=== PATIENT | female | born 1950 | race Hispanic/Latino ===

== ENCOUNTER → 2025-01-20 | Outpatient (REF) | payer MEDICARE | LOC: NM 08:15 | PROVIDERS: ATTEND Pain Medicine Interventional Pain Medicine | DX: E11.9 Type 2 diabetes mellitus without complications (principal); I10 Essential (primary) hypertension; K59.04 Chronic idiopathic constipation; K21.00 Gastro-esophageal reflux disease with esophagitis, without bleeding; K44.9 Diaphragmatic hernia without obstruction or gangrene; K74.60 Unspecified cirrhosis of liver; K64.8 Other hemorrhoids; R14.0 Abdominal distension (gaseous); D64.9 Anemia, unspecified; K86.81 Exocrine pancreatic insufficiency; R10.12 Left upper quadrant pain; Z68.30 Body mass index [BMI] 30.0-30.9, adult; Z71.3 Dietary counseling and surveillance; Z78.9 Other specified health status; Z86.0100 Personal history of colon polyps, unspecified; Z87.11 Personal history of peptic ulcer disease | CPT/HCPCS: 78264; A9541 ==